=== PATIENT | male | born 1975 | race African-American/Black ===

== ENCOUNTER → 2019-03-14 | Outpatient (CLI) | payer OTHER ==
[~2019-03-14] MED LIST: AMOXICILLIN500 M1 PO; COUGH DROPS1 EAC1
== END ==
LOC: CAT 10:10
DX: Z13.6 Encounter for screening for cardiovascular disorders (principal)

== ENCOUNTER → 2019-04-17 | Outpatient (CLI) | payer BC | LOC: SJCVCIMAG 13:32 | DX: I10 Essential (primary) hypertension (principal); R07.9 Chest pain, unspecified; E78.5 Hyperlipidemia, unspecified ==